=== PATIENT | male | born 1965 | race Caucasian/White ===

== ENCOUNTER 2020-08-05 13:38 | Inpatient (IN) ==
[2020-08-05] MEDS ORDERED: hydrALAZINE HCL 20 MG/ML VIAL IV STA (15:26)
[2020-08-05 16:08] LABS: Basophils # (auto) 0.01 K/uL (0-0.2); Basophils % (auto) 0.1 %; Eosinophils # (auto) 0.18 K/uL (0-0.5); Eosinophils % (auto) 2.4 %; Hematocrit (blood only) 41.9 % (42-52); Hemoglobin 15.2 g/dL (14.0-18.0); Immature Granulocytes # (auto) 0.02 K/uL (0.00-0.02); Immature Granulocytes % (auto) 0.3 %; Lymphocytes # (auto) 2.32 K/uL (1.2-3.4); Lymphocytes % (auto) 30.4 %; Mean Corpuscular Hemoglobin 34.1 pg (25-34); Mean Corpuscular Hgb Conc 36.3 g/dL (32-36); Mean Corpuscular Volume 93.9 fL (80-100); Mean Platelet Volume 8.9 fL (7.4-10.4); Monocytes # (auto) 0.82 K/uL (0.11-0.59); Monocytes % (auto) 10.7 %; Neutrophils # (auto) 4.28 K/uL (1.4-6.5); Neutrophils % (auto) 56.1 %; Platelet Count 177 K/uL (130-400); RDW Coefficient of Variation 12.4 % (11.5-14.5); RDW Standard Deviation 41.8 fL (36.4-46.3); Red Blood Count 4.46 M/uL (4.7-6.1); White Blood Count 7.63 K/uL (4.8-10.8)
[2020-08-05 16:26] LABS: Alanine Aminotransferase 54 U/L (12-78); Albumin Level 3.9 gm/dl (3.4-5.0); Aspartate Aminotransferase 26 U/L (15-37); Blood Urea Nitrogen 19 mg/dl (7-18); Calcium 8.7 mg/dl (8.5-10.1); Carbon Dioxide 28 mmol/L (21-32); Chloride 108 mmol/L (98-107); Est GFR (African American) 108.2; Est GFR (Non-African American) 93.4; Glucose 94 mg/dl (70-99); Magnesium 2.4 mg/dl (1.8-2.4); Prothrombin Time 10.8 Seconds (9.0-12.0); Sodium 139 mmol/L (136-145)
[2020-08-05 16:31] LABS: Albumin Globulin Ratio 1.2 (0.9-2); Alkaline Phosphatase 45 U/L (45-117); Globulin 3.3 gm/dl (2.5-4.0); Phosphorus 3.3 mg/dl (2.5-4.9); Total Protein 7.2 gm/dl (6.4-8.2); Troponin I < 0.015 ng/ml (0-0.045)
[2020-08-05 16:36] LABS: Appearance Urine Clear (Clear); Bilirubin Urine Negative (Negative); Blood Urine Negative (Negative); Color Urine Yellow; Glucose Urine UA Negative (Negative); Ketones Urine Negative (Negative); Leukocyte Esterase Urine Negative (Negative); Nitrite Urine Negative (Negative); Protein Urine Negative (Negative); Specific Gravity Urine 1.016 (1.000-1.030); Urobilinogen Urine Negative (Negative); pH Urine 6.5 (4.5-7.5)
--- NOTE | 2020-08-05 16:39 | Emergency Department Note ---
History of Present Illness General Chief complaint: Hypertension Stated complaint: HIGH BLOOD PRESSURE, HEADACHE, NUMBNESS FACE Time Seen by Provider: 08/05/20 15:12 History of Present Illness This patient is a 55-year-old male who presents emergency department ambulatory for evaluation of hypertension that has gotten worse over the last several days. The patient has a history of hypertension. His medications have not changed. He is currently on lisinopril and carvedilol which he has been taking as prescr ibed. He denies any chest pain or shortness of breath. He has noted intermittent, throbbing headaches. He has not taken anything for pain. He does note some numbness and tingling over the left side of his cheek that started a few days ago. The patient contacted his primary care physician who directed him here for further evaluation. Home Medications Medication Instructions Recorded Confirmed Type carvedilol [Coreg] 12.5 mg PO AMHS 08/31/18 08/05/20 History cholecalciferol (vitamin D3) 1,000 unit PO HS 08/31/18 08/05/20 History [Vitamin D3] multivitamin 1 tab PO QAM 08/31/18 08/05/20 History ascorbic acid (vitamin C) [Vitamin 500 mg PO HS 08/05/20 08/05/20 History C] lisinopril 30 mg PO HS 08/05/20 08/05/20 History omega-3 fatty acids [Fish Oil] 1,000 mg PO BID 08/05/20 08/05/20 History thiamine HCl (vitamin B1) [Vitamin 100 mg PO QAM 08/05/20 08/05/20 History B-1] Allergies Allergy/AdvReac Type Severity Reaction Status Date / Time No Known Allergies Allergy Verified 08/05/20 19:35 Past Med/Surg History Medical History Hypertension Social History Smoking Status: Never smoker Hx Substance Use: No Communication Ability: Effective Beliefs That Will Affect Care: None Current Living Situation: Family Other Information That Helps Us Care for You: No Feels Safe at Home: Yes Safety Concerns: Feels Safe At This Time Assistive Devices: None Review of Systems A total of 10 systems reviewed and were otherwise negative Physical Exam Vital Signs Vital Signs - 24 hr 08/05/20 15:53 08/05/20 16:32 08/05/20 17:34 Pulse Rate Pulse Rate [Finger] 62 65 66 Pulse Rate from SpO2 Sensor Pulse Rhythm [Finger] Regular Pulse Strength [Finger] Normal Respiratory Rate 16 16 22 Respiratory Effort / Characteristics Non-Labored Non-Labored Non-Labored Respiratory Depth Normal Normal Normal Respiratory Pattern Regular Blood Pressure Blood Pressure [Left Arm] 164/115 H 162/108 H 183/117 H Blood Pressure Mean Blood Pressure Mean [Left Arm] 131 126 139 Blood Pressure Position [Left Arm] Lying Pulse Oximetry 97 98 96 Oxygen Delivery Method Room Air 08/05/20 18:22 08/05/20 18:50 08/05/20 19:00 Pulse Rate 62 59 L Pulse Rate [Finger] 66 Pulse Rate from SpO2 Sensor 62 61 Pulse Rhythm [Finger] Pulse Strength [Finger] Respiratory Rate 16 17 23 Respiratory Effort / Characteristics Respiratory Depth Respiratory Pattern Blood Pressure 186/116 H 172/118 H Blood Pressure [Left Arm] 196/132 H Blood Pressure Mean 133 131 Blood Pressure Mean [Left Arm] 153 Blood Pressure Position [Left Arm] Pulse Oximetry 97 98 97 Oxygen Delivery Method 08/05/20 19:30 08/05/20 20:00 Pulse Rate 64 68 Pulse Rate [Finger] Pulse Rate from SpO2 Sensor 64 68 Pulse Rhythm [Finger] Pulse Strength [Finger] Respiratory Rate 12 20 Respiratory Effort / Characteristics Respiratory Depth Respiratory Pattern Blood Pressure 164/123 H 175/144 H Blood Pressure [Left Arm] Blood Pressure Mean 135 153 Blood Pressure Mean [Left Arm] Blood Pressure Position [Left Arm] Pulse Oximetry 98 Oxygen Delivery Method Constitutional WD/WN, vitals as above Eyes EOM intact bilaterally ENMT external ear and nose normal, oropharynx normal Neck trachea midline Respiratory normal respiratory effort, lungs clear to auscultation Cardiovascular RRR, no murmur, no edema Gastrointestinal (Abdomen) normal bowel sounds, soft, nontender, no hepatosplenomegaly Musculoskeletal no cyanosis or clubbing, extremities motor strength 5/5 Skin no rashes, warm and dry Neurologic Alert and oriented x3. No focal motor deficits. Cranial nerves grossly intact. Normal [id number]. Negative Romberg. Normal heel-to-toe walking. Psychiatric Acting appropriately Course Course Patient was seen and examined Vital signs including blood pressure were reviewed medications list was verified with patient Labs were obtained, and a saline lock was established An order was placed for continuous cardiac monitoring. The monitor shows a rate of 68 with normal sinus rhythm. Imaging was performed and reviewed. The patient was reassessed and resting comfortably. We discussed his results and disposition. He was comfortable with possible inpatient management. The case was also discussed with my supervising physician who is in agreement with my plan. The case was discussed with the [facility] service. They kindly agreed to evaluate the patient for possible inpatient management. [facility]ations [facility] Ascorbic Acid (Ascorbic Acid 500 Mg Tab) [address] [facility] Stop: 09/04/20 23:04 Last Admin: 08/05/20 23:49 Dose: 500 mg Documented by: [id number] Carvedilol (Carvedilol 12.5 Mg Tab) 12.5 mg PO [facility] Stop: 09/04/20 23:04 Last Admin: 08/06/20 09:13 Dose: 12.5 mg Documented by: [id number] Admin: 08/05/20 23:52 Dose: Not Given Documented by: [id number] Lisinopril (Lisinopril 10 Mg Tab) [address] [facility] Stop: 09/04/20 23:04 Last Admin: 08/05/20 23:52 Dose: Not Given Documented by: [id number] Multivitamins (Multivitamin Tab) 1 tab PO [facility] Stop: 09/05/20 08:59 Last Admin: 08/06/20 09:13 Dose: 1 tab Documented by: [id number] Thiamine HCl (Thiamine Hcl 100 Mg Tab) 100 mg PO [facility] Stop: 09/05/20 08:59 Last Admin: 08/06/20 09:14 Dose: 100 mg Documented by: [id number] Discontinued Medications Carvedilol (Carvedilol 12.5 Mg Tab) 12.5 mg PO NOW STA Stop: 08/05/20 20:48 Last Admin: 08/05/20 21:01 Dose: 12.5 mg Documented by: [id number] Gadobutrol (Gadobutrol 65ml Vial) 11.5 ml IV ONCE ONE Stop: 08/06/20 02:04 Last Admin: 08/06/20 01:52 Dose: 11.5 ml Documented by: [id number] Hydralazine HCl (Hydralazine Hcl 20 Mg/Ml Vial) 10 mg IV NOW STA Stop: 08/05/20 15:27 Last Admin: 08/05/20 16:17 Dose: 10 mg Documented by: [id number] Sodium Chloride (Nss 1000ml) 1,000 mls @ 999 mls/hr IV .Q1H1M ONE Stop: 08/05/20 19:23 Last Infusion: 08/05/20 20:11 Dose: 0 mls/hr Documented by: [id number] Admin: 08/05/20 18:53 Dose: 999 mls/hr Documented by: [id number] Nicardipine HCl 25 mg/ Sodium (Chloride) 250 mls @ 50 mls/hr IV .Q5H JAZZMINE; Protocol Stop: 09/04/20 20:29 Last Titration: 08/06/20 00:04 Dose: 0 mg/hr, 0 mls/hr Documented by: [id number] Titration: 08/05/20 23:52 Dose: 0 mg/hr, 0 mls/hr Documented by: [id number] Admin: 08/05/20 21:01 Dose: 5 mg/hr, 50 mls/hr Documented by: [id number] Cosigned by: [id number] Ioversol (Optiray 320 125ml) 120 ml IV ONCE ONE Stop: 08/05/20 17:24 Last Admin: 08/05/20 17:23 Dose: 120 ml Documented by: [id number] Lisinopril (Lisinopril 10 Mg Tab) 30 mg PO NOW STA Stop: 08/05/20 20:48 Last Admin: 08/05/20 21:29 Dose: 30 mg Documented by: [id number] Medical Decision Making Medical Records Attestation: I reviewed the patient's medical records. Home Medications Current Medication List: was personally reviewed by fl Laboratory Data Attestation: I reviewed the patient's lab results. Result diagrams: 08/06/20 05:01 08/06/20 05:01 Lab Results 08/05/20 08/05/20 08/05/20 Range/Units 15:50 15:50 15:50 WBC 7.63 (4.8-10.8) K/uL RBC 4.46 L (4.7-6.1) M/uL Hgb 15.2 (14.0-18.0) g/dL Hct 41.9 L (42-52) % MCV 93.9 (80-100) fL MCH 34.1 H (25-34) pg MCHC 36.3 H (32-36) g/dL RDW Std Deviation 41.8 (36.4-46.3) fL RDW Coeff of Sussy 12.4 (11.5-14.5) % Plt Count 177 (130-400) K/uL MPV 8.9 (7.4-10.4) fL Immature Gran % (Auto) 0.3 % Neut % (Auto) 56.1 % Lymph % (Auto) 30.4 % Ellsworth % (Auto) 10.7 % Eos % (Auto) 2.4 % Baso % (Auto) 0.1 % Neut # (Auto) 4.28 (1.4-6.5) K/uL Lymph # (Auto) 2.32 (1.2-3.4) K/uL Ellsworth # (Auto) 0.82 H (0.11-0.59) K/uL Eos # (Auto) 0.18 (0-0.5) K/uL Baso # (Auto) 0.01 (0-0.2) K/uL Immature Gran # (Auto) 0.02 (0.00-0.02) K/uL PT 10.8 (9.0-12.0) Seconds INR 1.0 (0.9-1.1) Sodium 139 (136-145) mmol/L Potassium 4.0 (3.5-5.1) mmol/L Chloride 108 H (98-107) mmol/L Carbon Dioxide 28 (21-32) mmol/L Anion Gap 3.0 (3-11) BUN 19 H (7-18) mg/dl Creatinine 0.93 (0.6-1.4) mg/dl Est Cr Clr Drug Dosing 121.0 ml/min Est GFR ( Amer) 108.2 Est GFR (Non-Af Amer) 93.4 BUN/Creatinine Ratio 20.0 (10-20) Glucose 94 (70-99) mg/dl Calcium 8.7 (8.5-10.1) mg/dl Phosphorus 3.3 (2.5-4.9) mg/dl Magnesium 2.4 (1.8-2.4) mg/dl Total Bilirubin 1.0 (0.2-1) mg/dl AST 26 (15-37) U/L ALT 54 (12-78) U/L Alkaline Phosphatase 45 (45-117) U/L Troponin I < 0.015 (0-0.045) ng/ml Total Protein 7.2 (6.4-8.2) gm/dl Albumin 3.9 (3.4-5.0) gm/dl Globulin 3.3 (2.5-4.0) gm/dl Albumin/Globulin Ratio 1.2 (0.9-2) Urine Color Urine Appearance (Clear) Urine pH (4.5-7.5) Ur Specific [place] (1.000-1.030) Urine Protein (Negative) Urine Glucose (UA) (Negative) Urine Ketones (Negative) Urine Blood (Negative) Urine Nitrite (Negative) Urine Bilirubin (Negative) Urine Urobilinogen (Negative) Ur Leukocyte Esterase (Negative) Lyme Disease IgG Ab (Negative) Lyme Disease IgM Ab (Negative) 08/05/20 08/05/20 Range/Units 15:50 15:50 WBC (4.8-10.8) K/uL RBC (4.7-6.1) M/uL Hgb (14.0-18.0) g/dL Hct (42-52) % MCV (80-100) fL MCH (25-34) pg MCHC (32-36) g/dL RDW Std Deviation (36.4-46.3) fL RDW Coeff of Sussy (11.5-14.5) % Plt Count (130-400) K/uL MPV (7.4-10.4) fL Immature Gran % (Auto) % Neut % (Auto) % Lymph % (Auto) % Ellsworth % (Auto) % Eos % (Auto) % Baso % (Auto) % Neut # (Auto) (1.4-6.5) K/uL Lymph # (Auto) (1.2-3.4) K/uL Ellsworth # (Auto) (0.11-0.59) K/uL Eos # (Auto) (0-0.5) K/uL Baso # (Auto) (0-0.2) K/uL Immature Gran # (Auto) (0.00-0.02) K/uL PT (9.0-12.0) Seconds INR (0.9-1.1) Sodium (136-145) mmol/L Potassium (3.5-5.1) mmol/L Chloride (98-107) mmol/L Carbon Dioxide (21-32) mmol/L Anion Gap (3-11) BUN (7-18) mg/dl Creatinine (0.6-1.4) mg/dl Est Cr Clr Drug Dosing ml/min Est GFR ( Amer) Est GFR (Non-Af Amer) BUN/Creatinine Ratio (10-20) Glucose (70-99) mg/dl Calcium (8.5-10.1) mg/dl Phosphorus (2.5-4.9) mg/dl Magnesium (1.8-2.4) mg/dl Total Bilirubin (0.2-1) mg/dl AST (15-37) U/L ALT (12-78) U/L Alkaline Phosphatase (45-117) U/L Troponin I (0-0.045) ng/ml Total Protein (6.4-8.2) gm/dl Albumin (3.4-5.0) gm/dl Globulin (2.5-4.0) gm/dl Albumin/Globulin Ratio (0.9-2) Urine Color Yellow Urine Appearance Clear (Clear) Urine pH 6.5 (4.5-7.5) Ur Specific [place] 1.016 (1.000-1.030) Urine Protein Negative (Negative) Urine Glucose (UA) Negative (Negative) Urine Ketones Negative (Negative) Urine Blood Negative (Negative) Urine Nitrite Negative (Negative) Urine Bilirubin Negative (Negative) Urine Urobilinogen Negative (Negative) Ur Leukocyte Esterase Negative (Negative) Lyme Disease IgG Ab Negative (Negative) Lyme Disease IgM Ab Negative (Negative) Imaging Data Attestation: I personally reviewed and interpreted this imaging study as follows: Radiologist's Impression: Chest x-ray No acute cardiopulmonary findings. CTA head and neck Unremarkable CTA of the head and neck. CT head without contrast No acute intracranial findings. ECG Data Attestation: I personally reviewed and interpreted this ECG as follows: Indication: + other Rate (beats per minute): 65 Rhythm: + normal sinus Additional Comments: No acute ischemic changes noted. No ectopy. Repeat EKG was performed and no changes were noted. No change when compared to prior study. Blood Pressure Blood Pressure Findings: Elevated blood pressure MDM Narrative Differential diagnosis: Hypertensive urgency, hypertensive emergency, CVA, intracranial bleed, infectious etiology such as Lyme disease was also considered This patient is a 55-year-old male who presents emergency department complaining of intermittent headaches, hypertension and tingling on the left side of his face. On exam, he was significantly hypertensive. Pulse was stable. The patient is already on hypertensive medication. A work-up was performed. Troponin is negative. EKG does not show any signs of acute ischemia. Renal function intact. No other abnormalities noted in the blood work. The patient was given hydralazine with fairly good response. Unfortunately, the patient's blood pressure did continue to go up. For this reason, I do not feel comfo rtable sending the patient home. Hospitalist was consulted, and agreed to evaluate the patient for likely inpatient management. Impression & Plan Hypertensive crisis Discharge Plan Visit Data Chief Complaint: Hypertension Stated Complaint: HIGH BLOOD PRESSURE, HEADACHE, NUMBNESS FACE ED Provider: Pa Cavanaugh ED Midlevel Provider: Trang Mackenzie Discharge Problem: Hypertensive crisis Patient Disposition: Admitted As Inpatient Condition: Good Discharge Instructions Interventions: ED Discharge Assessment Last Done: 08/05/20 22:11
--- NOTE | 2020-08-05 16:40 | XRay Report ---
XR chest 1V portable CLINICAL HISTORY: Hypertension. COMPARISON STUDY: Chest radiograph August 31, 2018. FINDINGS: Lung volumes are normal. Minimal left basilar opacity reflects atelectasis. There is no pne umothorax or pleural effusion. Cardiac size is normal. Mediastinal contours are normal. There is no e vidence for pulmonary edema. IMPRESSION: No acute cardiopulmonary findings. ACT 112: Negative or not required by law. Electronically signed by: Dimitrios Ryan M.D. 08/05/2020 4:39 PM
--- NOTE | 2020-08-05 16:51 | CT Scan Report ---
CT OF THE HEAD WITHOUT CONTRAST CLINICAL HISTORY: Headache. Hypertension. COMPARISON STUDY: No previous studies for comparison. CT DOSE: 537.48 mGy.cm TECHNIQUE: Helical axial images of the head were obtained without IV contrast. Automated exposure con trol was utilized for the study. A dose lowering technique was utilized adhering to the principles o f ALARA. FINDINGS: No acute intracranial hemorrhage, midline shift or mass effect is present. The ventricular system is unremarkable. The basal cisterns are patent. No extra-axial collections are present. There are no findings to suggest acute dural sinus thrombosis or acute territorial infarct. No significant calvarial abnormalities are present. Visualized portions of the sinuses and mastoid air cells are eliza ar. IMPRESSION: No acute intracranial findings. ACT 112: Negative or not required by law. Electronically signed by: Dimitrios Ryan M.D. 08/05/2020 4:49 PM
[2020-08-05 16:53] LABS: Lyme Ab IgG w/WB Rflx Negative (Negative); Lyme Ab IgM w/WB Rflx Negative (Negative)
--- NOTE | 2020-08-05 17:06 | Electrocardiogram Report ---
Test Reason : Blood Pressure : / mmHG Vent. Rate : 062 BPM Atrial Rate : 234 BPM P-R Int : 000 ms QRS Dur : 088 ms QT Int : 428 ms P-R-T Axes : 060 035 058 degrees QTc Int : 434 ms Poor data quality, interpretation may be adversely affected Normal sinus rhythm Poor R wave progression, consider anterior ND vs. lead placement vs. LVH Abnormal ECG When compared with ECG of 31-AUG-2018 11:57, No significant change Reconfirmed by Guille Evans ([id number]) on 08/06/2020 9:20:21 AM Referred By: REFERRED SELF Confirmed By:Guille Evans
[2020-08-05] MEDS ORDERED: OPTIRAY 320 125ml IV ONE (17:23)
--- NOTE | 2020-08-05 17:59 | CT Scan Report ---
CT angio neck with con, CT angio head w con CLINICAL HISTORY: 55 years-old Male with stroke sx. Acute strokelike symptoms COMPARISON STUDY: Head CT of same day TECHNIQUE: Following the IV administration of 120 mL of Optiray 320, CT angiogram of the head and nec k was performed from the aortic arch to the skull apex. Images are reviewed in the axial, sagittal, a nd coronal planes. 3-D MIPS images are created and assessed. IV contrast was administered without com plication. All measurements were calculated based on NASCET criteria. A dose lowering technique was utilized adhering to the principles of ALARA. CT DOSE: 641.02 mGy.cm FINDINGS: The imaged opacified pulmonary artery is unremarkable. Three-vessel morphology of the thoracic aortic arch. Patency of the innominate and imaged subclavian arteries. Common carotid arteries are widely p atent. The internal carotid arteries are widely patent. The middle and anterior cerebral arteries are widely patent. Dominant left vertebral artery. Vertebral arteries are patent. The basilar and landing scaler ior cerebral arteries are also widely patent. No aneurysm, dissection, high-grade stenosis or proxima l branch occlusion. Cerebral venous sinuses are patent. There is no abnormal intracranial enhancement . Clear lung apices. No pneumothorax. Mildly heterogeneous thyroid. Unremarkable soft tissues without a denopathy. Bones appear intact. Multilevel degenerative changes of the cervical spine. Mild polypoid mucosal thickening of the right maxillary sinus. Remote appearing fracture of the medial wall of the right orbit. Tiny left ethmoid air cell osteoma. IMPRESSION:Unremarkable CTA of the head and neck. ACT 112: Negative or not required by law. The above report was generated using voice recognition software. It may contain grammatical, syntax o r spelling errors. Electronically signed by: Alok Juárez M.D. 08/05/2020 5:58 PM
[2020-08-05] MEDS ORDERED: SODIUM CHLORIDE 0.9% 1000ML 1,000 ML IV ONE (18:23)
[2020-08-05] MEDS ORDERED: niCARdipine 25 MG in SODIUM CHLORIDE 0.9% 240 ML IV SCH (20:30)
[2020-08-05] MEDS ORDERED: carvediloL 12.5 MG TAB PO STA (20:47)
[2020-08-05] MEDS ORDERED: lisinopril 10 MG TAB PO STA (20:47)
[2020-08-05] MEDS ORDERED: STAT IV Infusion **Titration per Protocol STA (23:05)
[2020-08-05] MEDS ORDERED: ONDANSETRON INJ 2 MG/ML 2 ML VIAL IV PRN (23:05)
[2020-08-05] MEDS ORDERED: POLYETHYLENE (MIRALAX) 17 GM PACK PO PRN (23:05)
[2020-08-05] MEDS ORDERED: ACETAMINOPHEN 325 MG TAB PO PRN (23:05)
[2020-08-05] MEDS ORDERED: NITROGLYCERIN SL 0.4 MG/TAB TAB SL PRN (23:05)
[2020-08-05] MEDS ORDERED: PHARMACIST DISCHARGE MED REC CONSULT PRN (23:05)
--- NOTE | 2020-08-05 23:35 | History and Physical Report ---
DATE OF ADMISSION: 08/05/2020 CHIEF COMPLAINT: Headache and some left facial numbness and elevated blood pressure. HISTORY OF PRESENT ILLNESS: A 55-year-old male who has past medical history significant for hyperlipidemia, subclinical hypothyroidism, moderate obstructive sleep apnea, hypertension, spondylosis of lumbosacral regions, osteoarthritis of both knees, history of localized edema, obesity, who lives with his , presents with headache and elevated blood pressure. The patient states that he is having headache and on and off numbness in his left facial region for the last 2-3 days and when he checked his blood pressure it was running high in the 180s, so he got worried and came to the ER. He takes lisinopril 30 mg at bedtime and Coreg 12.5 mg p.o. b.i.d., the dose was not changed recently. His blood pressure is running somewhat high at home like systolic 140s to 150s range and 90-100 diastolic. He had left facial numbness several years ago attributed to his migraine. Once in a while, he gets the numbness, but at this time it is not as bad as before, it is just close to his left eye and left subparietal region, but it was somewhat more constant. The headache has resolved, currently he does not have any headaches. No blurred visions or double visions. No numbness in the hands or legs. Currently resting comfortably and hemodynamically stable. His blood pressure when he came in was elevated at 190/121. Denies any chest pain, no shortness of breath, no cough. He has occasional postnasal drainage. No earache, no sore throat, no difficulty swallowing. Appetite is good. No shortness of breath, no nausea, no vomiting, no abdominal pain. Had diarrhea for a couple of days one week ago that got resolved. No blood in the stools or black stools. Normal bladder movements. No hematuria. No swelling in the legs, no rash. He went for hunting a few days ago and he could climb up and down without any difficulty.He had been treated for Lyme disease couple of times in the past and he thinks he had some insect bites in his left groin region, he thinks it could be tick bite, but there is no rash now, no fever, it was about 1 week ago, and Lyme disease screen tested in the ER today is negative. COVID-19 test also negative. ALLERGIES: No known drug allergies. PAST MEDICAL HISTORY: As mentioned above. PAST SURGICAL HISTORY: Colonoscopy, multiple nasal surgeries, left lateral meniscectomy, adenoidectomy, inguinal hernia repair. MEDICATIONS: At home, the patient is on ascorbic acid 500 mg p.o. at bedtime, Coreg 12.5 mg p.o. b.i.d., vitamin D 1000 units at bedtime, lisinopril 30 mg p.o. at bedtime, multivitamin 1 tablet p.o. daily, fish oil 1 gram p.o. b.i.d., thiamine 100 mg p.o. a.m. FAMILY HISTORY: Significant for mother has diabetes, hypertension; father has hypertension. SOCIAL HISTORY: . No smoking. Alcohol on weekends. No drug use. REVIEW OF SYSTEMS: As per HPI. Rest of the review of systems negative. PHYSICAL EXAMINATION: GENERAL: The patient is obese, not in acute distress. VITAL SIGNS: Temperature 37, pulse 64, respiratory rate 12, blood pressure currently 164/123, oxygen 98% on room air. HEENT: Pupils equal, round, and reactive to light. Extraocular muscles intact. Head atraumatic. Oral mucosa moist. NECK: No JVD, no carotid bruit, no neck masses. CARDIOVASCULAR: S1, S2 heard, regular rate and rhythm, no murmur, no gallop. RESPIRATORY SYSTEM: Normal AP diameter. No accessory muscle use. No wheezing, no crackles. ABDOMEN: Soft, bowel sounds present, nontender. No distention. EXTREMITIES: No edema, no erythema. CENTRAL NERVOUS SYSTEM: Cranial nerves II-XII grossly intact, nonfocal. Power 5/5 in all extremities. Coordination and movements normal. No pronator drift. Able to raise his lower extremity and hold it for a few seconds. Sensation is intact. Somewhat numbness in the left parietal and orbital region. LABORATORY DATA: WBC 7.6, hemoglobin 15.2, hematocrit 41.9, platelets 177. PT 10.8, INR 1. Sodium 139, potassium 4, chloride 108, bicarbonate 28, BUN 19, creatinine 0.9, serum glucose 94, calcium 8.7, phosphorus 3.3, magnesium 2.4, total bilirubin 1, AST 26, ALT 54, alkaline phosphatase 45. Troponin I less than 0.015. Urinalysis negative. Lyme screen negative. COVID-19 negative. IMAGING DATA: CTA of the head unremarkable. CTA of the neck unremarkable. CT of the head, no acute intracranial findings. Chest x-ray, no acute findings. EKG: Atrial flutter at the rate of 62. Repeat EKG shows normal sinus rhythm at a rate of 65. ASSESSMENT AND PLAN: This is a 55-year-old male who presents with hypertensive urgency and also some numbness in the left facial region. 1. Hypertensive urgency. He is on lisinopril 30 mg and Coreg 12.5 mg daily at home. His blood pressure usually runs in the 140-150 range and diastolics in 95-100 range. It has been high at home today. He is getting headaches for a few days and also some numbness in the left facial region for the last 2-3 days. In the ER his diastolic was very high, so we will place him on nicardipine drip and continue his home Coreg and hydralazine and closely monitor in the tele floor. We will get an echocardiogram and consult cardiology in a.m. for further recommendations. 2. Questionable atrial flutter. We will follow the repeat EKGs. Tele monitor. Await cardiology input. 3. Facial numbness. He had left facial numbness several years ago for a small period of time. At that time, it was thought to be migraines. Currently happening in the setting of hypertensive urgency. This is not as bad as before. Initial CAT of head and CTA of the head and neck are unremarkable. We will follow with MRI scans. Stroke workup with neuro evaluation in the a.m. 4. Sleep apnea. Continue his home CPAP. 5. Obesity, needs counseling. 6. History of subclinical hypothyroidism. We will his thyroid profile. 7. Deep vein thrombosis prophylaxis, sequential compression devices for now. 8. Disposition: Closely monitor in the tele floor. Level 1 full code. Expect to discharge home and follow with family doctor. Addendum: His Blood pressure dropped after home meds lisinopril and Coreg. Stopped his nicardipine drip. Close monitor. [facility]
[2020-08-05] MEDS: ASCORBIC ACID 500 MG TAB PO SCH (23:49)
[2020-08-05] MEDS: lisinopril 10 MG TAB PO SCH (23:52)
[2020-08-05] MEDS: carvediloL 12.5 MG TAB PO SCH (23:52)
[2020-08-06] MEDS ORDERED: GADOBUTROL 65ML VIAL IV ONE (02:03)
[2020-08-06 05:21] LABS: Basophils # (auto) 0.01 K/uL (0-0.2); Basophils % (auto) 0.2 %; Eosinophils # (auto) 0.15 K/uL (0-0.5); Eosinophils % (auto) 2.3 %; Hematocrit (blood only) 39.9 % (42-52); Hemoglobin 14.2 g/dL (14.0-18.0); Immature Granulocytes # (auto) 0.03 K/uL (0.00-0.02); Immature Granulocytes % (auto) 0.5 %; Lymphocytes # (auto) 1.99 K/uL (1.2-3.4); Lymphocytes % (auto) 30.6 %; Mean Corpuscular Hemoglobin 33.7 pg (25-34); Mean Corpuscular Hgb Conc 35.6 g/dL (32-36); Mean Corpuscular Volume 94.8 fL (80-100); Monocytes # (auto) 0.67 K/uL (0.11-0.59); Monocytes % (auto) 10.3 %; Neutrophils # (auto) 3.66 K/uL (1.4-6.5); Neutrophils % (auto) 56.1 %; Platelet Count 171 K/uL (130-400); RDW Coefficient of Variation 12.6 % (11.5-14.5); RDW Standard Deviation 43.3 fL (36.4-46.3); Red Blood Count 4.21 M/uL (4.7-6.1); White Blood Count 6.51 K/uL (4.8-10.8)
[2020-08-06 05:42] LABS: BUN Creatinine Ratio 19.4 (10-20); Blood Urea Nitrogen 17 mg/dl (7-18); Calcium 8.4 mg/dl (8.5-10.1); Carbon Dioxide 27 mmol/L (21-32); Chloride 109 mmol/L (98-107); Cholesterol 142 mg/dl (0-200); Creatinine Clr Calc Pharmacy 126.3 ml/min; Est GFR (African American) 113.1; Est GFR (Non-African American) 97.6; Glucose 102 mg/dl (70-99); Magnesium 2.3 mg/dl (1.8-2.4); Potassium 4.1 mmol/L (3.5-5.1); Sodium 140 mmol/L (136-145)
[2020-08-06 05:52] LABS: Chol HDL Ratio 4; HDL Cholesterol 34 mg/dl; LDL Cholesterol Calculated 77 mg/dl; Triglycerides 153 mg/dl (0-150); Troponin I < 0.015 ng/ml (0-0.045); VLDL Cholesterol 31 mg/dl
[2020-08-06 05:57] LABS: Estimated Average Glucose 94 mg/dl; Hemoglobin A1C 4.9 % (4.5-5.6)
[2020-08-06 06:04] LABS: T4 Free Thyroxine 0.85 ng/dl (0.8-1.6)
--- NOTE | 2020-08-06 08:09 | Magnetic Resonance Report ---
MRI OF THE BRAIN WITHOUT AND WITH IV CONTRAST CLINICAL HISTORY: cva? Headaches. Facial numbness. COMPARISON STUDY: Head CT and CTA of the head August 05, 2020. TECHNIQUE: Utilizing a 1.5 Rylee magnet and dedicated coil, multiplanar, multiecho imaging of the br ain was performed pre and postcontrast administration. IV administration of 11.5 mL of Gadavist cont rast was uneventful. FINDINGS: There are no foci of restricted diffusion to suggest acute infarct. No acute intracranial h emorrhage, midline shift or mass effect is present. Brain volume is normal. Ventricular system is nor mal. Basal cisterns are patent. There is a retrocerebellar CSF signal intensity focus which is of no significance and may reflect a konrad cisterna magna or arachnoid cyst. There are choroid plexus cysts there is no intracranial mass or pathologic enhancement. No parenchymal signal abnormality is identif ied. Calvarial signal is normal. Orbits are unremarkable on this nondedicated exam. There is minimal ethmoid sinus mucosal thickening. There is no mastoid fluid. IMPRESSION: Unremarkable MRI of the brain. ACT 112: Negative or not required by law. Electronically signed by: Dimitrios Ryan M.D. 08/06/2020 8:07 AM
[2020-08-06] MEDS: lisinopril 10 MG TAB PO SCH (08:30)
[2020-08-06] MEDS: MULTIVITAMIN TAB PO SCH (09:13)
[2020-08-06] MEDS: carvediloL 12.5 MG TAB PO SCH ×2 (09:13→20:33)
[2020-08-06] MEDS: THIAMINE HCL 100 MG TAB PO SCH (09:14)
--- NOTE | 2020-08-06 09:32 | Cardiology Consultation ---
Date of Consultation August 06, 2020 Assessment & Plan (1) Hypertension: BP improved. MRI without acute abnormality. Resume home coreg and lisinopril doses. Will consider increasing lisinopril to 40 mg and adding HCTZ 12.5 mg -25 mg depending on BPs this am. No atrial flutter. Efforts in progress to amend EKG report from yesterday. No symptoms suggestive of angina. Troponin negative x 2. Will cancel further measurements. History of Present Illness Attending Physician: Brian Johnson MD History of Present Illness Mr Shaw is a 55 year old male seen in cardiology consultation per the request of Dr Stone for the evaluation of hypertensive urgency and concern of atrial flutter. Patient with longstanding h/o HTN. Has been in coreg and lisinopril. Has not missed any doses. Recently on home BP cuff noted readings of 145-150s/80s-90s. Yesterday had left facial numbness and very high BP readings, 190's/ diastolic up to 135 mm Hg. He was admitted to the ICU having presented to the ED. Nicardipine infusion was started however discontinued shortly after arrival to ICU , 12:36 am per nursing notes. BP well controlled in meantime. CTA of head and neck and MRI brain within normal limits. There was concern of atrial flutter performed on EKG in ED. Per my review this is sinus rhythm with baseline artifact. No AF or AFL on EKG or telemetry. 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 [employer] Allergies Allergy/AdvReac Type Severity Reaction Status Date / Time No Known Allergies Allergy Verified 08/05/20 19:35 Home Medications Medication Instructions Recorded Confirmed Type carvedilol [Coreg] 12.5 mg PO AMHS 08/31/18 08/05/20 History cholecalciferol (vitamin D3) 1,000 unit PO HS 08/31/18 08/05/20 History [Vitamin D3] multivitamin 1 tab PO QAM 08/31/18 08/05/20 History ascorbic acid (vitamin C) [Vitamin 500 mg PO HS 08/05/20 08/05/20 History C] lisinopril 30 mg PO HS 08/05/20 08/05/20 History omega-3 fatty acids [Fish Oil] 1,000 mg PO BID 08/05/20 08/05/20 History thiamine HCl (vitamin B1) [Vitamin 100 mg PO QAM 08/05/20 08/05/20 History B-1] Patient History Medical History Hypertension Social History Smoking Status: Never smoker Hx Substance Use: No Beliefs That Will Affect Care: None Current Living Situation: Family Other Information That Helps Us Care for You: No Feels Safe at Home: Yes Safety Concerns: Feels Safe At This Time Assistive Devices: CPAP and Glasses Review of Systems Review of Systems: All systems reviewed & are unremarkable except as noted in HPI & below Physical Exam Physical Exam: Temp Pulse Resp BP Pulse Ox 36.6 C 64 16 111/66 93 08/06/20 04:21 08/06/20 04:21 08/06/20 04:21 08/06/20 04:21 08/06/20 04:21 Constitutional: WD/WN, vitals as above Respiratory: normal respiratory effort, lungs clear to auscultation Cardiovascular: RRR, no murmur, no edema Gastrointestinal (Abdomen): normal bowel sounds, soft, nontender, no hepatosplenomegaly Neurologic: PERRL, EOMI, accommodation nl, no face palsy, no dysarthria Results & Data ([facility]) Vital Signs (Past 12 Hours) Vital Signs Temp Pulse Pulse Resp BP BP Pulse Ox 08/06/20 04:21 36.6 C 64 16 111/66 93 08/06/20 00:00 36.5 C 65 69 18 90/49 L 92 08/05/20 22:52 36.3 C L 73 20 145/87 H 96 08/05/20 21:30 81 24 155/98 H 96 08/05/20 21:26 74 20 124/97 97 Laboratory Results Cardiac Enzymes 08/05/20 08/06/20 Range/Units 15:50 05:01 AST 26 (15-37) U/L Troponin I < 0.015 < 0.015 (0-0.045) ng/ml Coagulation 08/05/20 Range/Units 15:50 PT 10.8 (9.0-12.0) Seconds Lipids 08/06/20 Range/Units 05:01 Triglycerides 153 H (0-150) mg/dl Cholesterol 142 (0-200) mg/dl HDL Cholesterol 34 mg/dl Cholesterol/HDL Ratio 4 CBC 08/05/20 08/06/20 Range/Units 15:50 05:01 WBC 7.63 6.51 (4.8-10.8) K/uL RBC 4.46 L 4.21 L (4.7-6.1) M/uL Hgb 15.2 14.2 (14.0-18.0) g/dL Hct 41.9 L 39.9 L (42-52) % Plt Count 177 171 (130-400) K/uL Neut # (Auto) 4.28 3.66 (1.4-6.5) K/uL Lymph # (Auto) 2.32 1.99 (1.2-3.4) K/uL Will # (Auto) 0.82 H 0.67 H (0.11-0.59) K/uL Eos # (Auto) 0.18 0.15 (0-0.5) K/uL Baso # (Auto) 0.01 0.01 (0-0.2) K/uL Comprehensive Metabolic Panel 08/05/20 08/06/20 Range/Units 15:50 05:01 Sodium 139 140 (136-145) mmol/L Potassium 4.0 4.1 (3.5-5.1) mmol/L Chloride 108 H 109 H (98-107) mmol/L Carbon Dioxide 28 27 (21-32) mmol/L BUN 19 H 17 (7-18) mg/dl Creatinine 0.93 0.89 (0.6-1.4) mg/dl Glucose 94 102 H (70-99) mg/dl Calcium 8.7 8.4 L (8.5-10.1) mg/dl AST 26 (15-37) U/L ALT 54 (12-78) U/L Alkaline Phosphatase 45 (45-117) U/L Total Protein 7.2 (6.4-8.2) gm/dl Albumin 3.9 (3.4-5.0) gm/dl Intake and Output 08/05/20 08/06/20 08/06/20 22:59 06:59 14:59 Intake Total 1000 / 1392.5 392.5 / 1392.5 Balance 1000 / 1392.5 392.5 / 1392.5 Intake: IV 1000 / 1142.5 142.5 / 1142.5 Nss 1000ML 1,000 ml @ 999 mls/ 1000 / 1000 hr IV .Q1H1M ONE Rx#:[id number] Cardene 25 mg In Nss 240 ml @ 5 142.5 / 142.5 MG/HR 50 mls/hr IV .Q5H JAZZMINE Rx #:[id number] Oral 250 / 250 Other: # Unmeasured Voids 1 Weight 116.1 kg 116.1 kg Weight Measurement Method Standing Scale Diagnostic Findings EKG 08/05/20 at 17:34 NSR at 65 , normal EKG EKG 08/05/20 1553: baseline artifact, NSR. NOT atrial flutter. No acute repolarization abnormalities
--- NOTE | 2020-08-06 11:26 | Hospitalist Progress Note ---
Date of Service August 06, 2020 Assessment & Plan (1) Hypertensive crisis: This is a 55-year-old male who presents with hypertensive urgency and numbness in the left facial region. 1. Hypertensive urgency. Pt is on lisinopril 30 mg and Coreg 12.5 mg daily at home. His blood pressure usually runs in the 140-150 range and diastolics in 95-100 range. It has been high at home prior to admission. He is getting headaches for a few days and also some numbness in the left facial region for the last 2-3 days. In the ER his diastolic was very high, so was started on nicardipine drip and continued his home BP meds and closely monitored in the tele floor. cardizem drip stopped. BP better controlled now. Cardiology plans to increase lisinopril to 40 mg daily, possibly adding HCTZ. Also discussed close follow up w/ PCP and monitoring of BP at home. Echocardiogram obtained -mild concentric LV hypertrophy. LV wall motion is normal. LV systolic function is normal. EF 60 to 65%. Grade 1 diastolic dysfunction, there is no significant valvular heart disease. 2. Questionable atrial flutter. Repeat EKGs. Tele. Cardiology consulted, do not believe pt was in Aflutter. 3. Facial numbness. Pt had left facial numbness several years ago for a small period of time. At that time, it was thought to be migraines. Currently happening in the setting of hypertensive urgency. This is not as bad as before. CT head and CTA of the head and neck are unremarkable. MRI negative for acute stroke. Neurology consulted for full evaluation Low suspicion for transient ischemic attack. Differential diagnosis certainly includes hypertensive urgency versus migraine aura. Given the prior history of similar symptoms, this would favor a possible aura. Agree with gradual reduction of blood pressures with goal systolic blood pressure of less than 140 and diastolic blood pressure of less than 90. In regards to symptomatic management, given the recurrence, patient may benefit from starting magnesium oxide 400 mg daily for possible aura prevention. Follow up with neurology as an outpatient in 8 weeks. 4. Sleep apnea. Continue his home CPAP. 5. Obesity, counseled pt on lifestyle modification, diet. 6. History of subclinical hypothyroidism. TSH mildly elevated. Follow up w/ PCP. DVT prophylaxis, SCDs for now. Ambulation. Disposition: tele floor Expect to discharge home and follow with family doctor. Appointment scheduled. Admission and Anticipated Discharge Date Admission Date: August 05, 2020 Subjective Pt is laying in bed in NAD. Presented with Left facial numbness, concern for poss. stroke. MRI brain negative for stroke, CT head, CTA head and neck also unremarkable. Uncontrolled HTN on admission, now BP better controlled. Left facial numbness resolved. No vision changes. No chest pain or shortness of breath. Review of Systems Review of Systems: All systems reviewed & are unremarkable except as noted in HPI & below Constitutional: no fever and no chills Respiratory: no cough and no dyspnea Cardiovascular: no chest pain, no palpitations and no edema Gastrointestinal: no abdominal pain, no nausea and no vomiting Physical Exam Physical Exam: GENERAL: obese male, sitting up in bed, not in acute distress HEENT: NC/AT, Pupils equal, round, and reactive to light. Extraocular muscles intact. Oral mucosa moist. NECK: No JVD, no carotid bruit, no neck masses. CARDIOVASCULAR: S1, S2 heard, regular rate and rhythm, no murmur. RESPIRATORY: Normal AP diameter. No accessory muscle use. No wheezing, no crackles. ABDOMEN: Soft, bowel sounds present, nontender. Obese. No distention. EXTREMITIES: No edema, no erythema. NEURO: Alert and oriented and answering questions appropriately, speech fluent no facial asymmetry. Cranial nerves II-XII grossly intact, nonfocal. Power 5/5 in all extremities. Coordination and movements normal. No pronator drift. Able to raise his lower extremity and hold it for a few seconds. Sensation is intact. SKIN: warm, dry, no rashes or lesions noted Results & Data Results & Data ([facility]) Vital Signs (Past 12 Hours) Vital Signs Temp Pulse Pulse Resp BP Pulse Ox 08/06/20 08:00 36.5 C 68 16 135/86 96 08/06/20 04:21 36.6 C 64 16 111/66 93 08/06/20 00:00 36.5 C 65 69 18 90/49 L 92 Laboratory Results 08/06/20 08/06/20 08/06/20 Range/Units 05:01 05:01 05:01 WBC 6.51 (4.8-10.8) K/uL RBC 4.21 L (4.7-6.1) M/uL Hgb 14.2 (14.0-18.0) g/dL Hct 39.9 L (42-52) % MCV 94.8 (80-100) fL MCH 33.7 (25-34) pg MCHC 35.6 (32-36) g/dL RDW Std Deviation 43.3 (36.4-46.3) fL RDW Coeff of Sussy 12.6 (11.5-14.5) % Plt Count 171 (130-400) K/uL MPV 9.0 (7.4-10.4) fL Immature Gran % (Auto) 0.5 % Neut % (Auto) 56.1 % Lymph % (Auto) 30.6 % [place] % (Auto) 10.3 % Eos % (Auto) 2.3 % Baso % (Auto) 0.2 % Neut # (Auto) 3.66 (1.4-6.5) K/uL Lymph # (Auto) 1.99 (1.2-3.4) K/uL [place] # (Auto) 0.67 H (0.11-0.59) K/uL Eos # (Auto) 0.15 (0-0.5) K/uL Baso # (Auto) 0.01 (0-0.2) K/uL Immature Gran # (Auto) 0.03 H (0.00-0.02) K/uL PT (9.0-12.0) Seconds INR (0.9-1.1) Sodium 140 (136-145) mmol/L Potassium 4.1 (3.5-5.1) mmol/L Chloride 109 H (98-107) mmol/L Carbon Dioxide 27 (21-32) mmol/L Anion Gap 4.0 (3-11) BUN 17 (7-18) mg/dl Creatinine 0.89 (0.6-1.4) mg/dl Est Cr Clr Drug Dosing 126.3 ml/min Est GFR ( Amer) 113.1 Est GFR (Non-Af Amer) 97.6 BUN/Creatinine Ratio 19.4 (10-20) Glucose 102 H (70-99) mg/dl Estimat Average Glucose 94 mg/dl Hemoglobin A1c 4.9 (4.5-5.6) % Calcium 8.4 L (8.5-10.1) mg/dl Phosphorus (2.5-4.9) mg/dl Magnesium 2.3 (1.8-2.4) mg/dl Total Bilirubin (0.2-1) mg/dl AST (15-37) U/L ALT (12-78) U/L Alkaline Phosphatase (45-117) U/L Troponin I < 0.015 (0-0.045) ng/ml Total Protein (6.4-8.2) gm/dl Albumin (3.4-5.0) gm/dl Globulin (2.5-4.0) gm/dl Albumin/Globulin Ratio (0.9-2) Triglycerides 153 H (0-150) mg/dl Cholesterol 142 (0-200) mg/dl LDL Cholesterol, Calc 77 mg/dl VLDL Cholesterol, Calc 31 mg/dl HDL Cholesterol 34 mg/dl Cholesterol/HDL Ratio 4 TSH 7.750 H (0.300-4.500) uIu/ml Free T4 0.85 (0.8-1.6) ng/dl Urine Color Urine Appearance (Clear) Urine pH (4.5-7.5) Ur Specific [place] (1.000-1.030) Urine Protein (Negative) Urine Glucose (UA) (Negative) Urine Ketones (Negative) Urine Blood (Negative) Urine Nitrite (Negative) Urine Bilirubin (Negative) Urine Urobilinogen (Negative) Ur Leukocyte Esterase (Negative) Lyme Disease IgG Ab (Negative) Lyme Disease IgM Ab (Negative) COVID-19 Eval Order SARS-CoV-2, RNA, NAAT (NEGATIVE) 08/05/20 08/05/20 08/05/20 Range/Units 20:30 20:30 15:50 WBC (4.8-10.8) K/uL RBC (4.7-6.1) M/uL Hgb (14.0-18.0) g/dL Hct (42-52) % MCV (80-100) fL MCH (25-34) pg MCHC (32-36) g/dL RDW Std Deviation (36.4-46.3) fL RDW Coeff of Sussy (11.5-14.5) % Plt Count (130-400) K/uL MPV (7.4-10.4) fL Immature Gran % (Auto) % Neut % (Auto) % Lymph % (Auto) % [place] % (Auto) % Eos % (Auto) % Baso % (Auto) % Neut # (Auto) (1.4-6.5) K/uL Lymph # (Auto) (1.2-3.4) K/uL [place] # (Auto) (0.11-0.59) K/uL Eos # (Auto) (0-0.5) K/uL Baso # (Auto) (0-0.2) K/uL Immature Gran # (Auto) (0.00-0.02) K/uL PT (9.0-12.0) Seconds INR (0.9-1.1) Sodium (136-145) mmol/L Potassium (3.5-5.1) mmol/L Chloride (98-107) mmol/L Carbon Dioxide (21-32) mmol/L Anion Gap (3-11) BUN (7-18) mg/dl Creatinine (0.6-1.4) mg/dl Est Cr Clr Drug Dosing ml/min Est GFR ( Amer) Est GFR (Non-Af Amer) BUN/Creatinine Ratio (10-20) Glucose (70-99) mg/dl Estimat Average Glucose mg/dl Hemoglobin A1c (4.5-5.6) % Calcium (8.5-10.1) mg/dl Phosphorus (2.5-4.9) mg/dl Magnesium (1.8-2.4) mg/dl Total Bilirubin (0.2-1) mg/dl AST (15-37) U/L ALT (12-78) U/L Alkaline Phosphatase (45-117) U/L Troponin I (0-0.045) ng/ml Total Protein (6.4-8.2) gm/dl Albumin (3.4-5.0) gm/dl Globulin (2.5-4.0) gm/dl Albumin/Globulin Ratio (0.9-2) Triglycerides (0-150) mg/dl Cholesterol (0-200) mg/dl LDL Cholesterol, Calc mg/dl VLDL Cholesterol, Calc mg/dl HDL Cholesterol mg/dl Cholesterol/HDL Ratio TSH (0.300-4.500) uIu/ml Free T4 (0.8-1.6) ng/dl Urine Color Yellow Urine Appearance Clear (Clear) Urine pH 6.5 (4.5-7.5) Ur Specific [place] 1.016 (1.000-1.030) Urine Protein Negative (Negative) Urine Glucose (UA) Negative (Negative) Urine Ketones Negative (Negative) Urine Blood Negative (Negative) Urine Nitrite Negative (Negative) Urine Bilirubin Negative (Negative) Urine Urobilinogen Negative (Negative) Ur Leukocyte Esterase Negative (Negative) Lyme Disease IgG Ab (Negative) Lyme Disease IgM Ab (Negative) COVID[facility]19 [facility] SARS-[facility]-2, RNA, NAAT NEGATIVE (NEGATIVE) 08/05/20 08/05/20 08/05/20 Range/Units 15:50 15:50 15:50 WBC 7.63 (4.8-10.8) K/uL RBC 4.46 L (4.7-6.1) M/uL Hgb 15.2 (14.0-18.0) g/dL Hct 41.9 L (42-52) % MCV 93.9 (80-100) fL MCH 34.1 H (25-34) pg MCHC 36.3 H (32-36) g/dL RDW Std Deviation 41.8 (36.4-46.3) fL RDW Coeff of Sussy 12.4 (11.5-14.5) % Plt Count 177 (130-400) K/uL MPV 8.9 (7.4-10.4) fL Immature Gran % (Auto) 0.3 % Neut % (Auto) 56.1 % Lymph % (Auto) 30.4 % [place] % (Auto) 10.7 % Eos % (Auto) 2.4 % Baso % (Auto) 0.1 % Neut # (Auto) 4.28 (1.4-6.5) K/uL Lymph # (Auto) 2.32 (1.2-3.4) K/uL [place] # (Auto) 0.82 H (0.11-0.59) K/uL Eos # (Auto) 0.18 (0-0.5) K/uL Baso # (Auto) 0.01 (0-0.2) K/uL Immature Gran # (Auto) 0.02 (0.00-0.02) K/uL PT 10.8 (9.0-12.0) Seconds INR 1.0 (0.9-1.1) Sodium (136-145) mmol/L Potassium (3.5-5.1) mmol/L Chloride (98-107) mmol/L Carbon Dioxide (21-32) mmol/L Anion Gap (3-11) BUN (7-18) mg/dl Creatinine (0.6-1.4) mg/dl Est Cr Clr Drug Dosing ml/min Est GFR ( Amer) Est GFR (Non-Af Amer) BUN/Creatinine Ratio (10-20) Glucose (70-99) mg/dl Estimat Average Glucose mg/dl Hemoglobin A1c (4.5-5.6) % Calcium (8.5-10.1) mg/dl Phosphorus (2.5-4.9) mg/dl Magnesium (1.8-2.4) mg/dl Total Bilirubin (0.2-1) mg/dl AST (15-37) U/L ALT (12-78) U/L Alkaline Phosphatase (45-117) U/L Troponin I (0-0.045) ng/ml Total Protein (6.4-8.2) gm/dl Albumin (3.4-5.0) gm/dl Globulin (2.5-4.0) gm/dl Albumin/Globulin Ratio (0.9-2) Triglycerides (0-150) mg/dl Cholesterol (0-200) mg/dl LDL Cholesterol, Calc mg/dl VLDL Cholesterol, Calc mg/dl HDL Cholesterol mg/dl Cholesterol/HDL Ratio TSH (0.300-4.500) uIu/ml Free T4 (0.8-1.6) ng/dl Urine Color Urine Appearance (Clear) Urine pH (4.5-7.5) Ur Specific [place] (1.000-1.030) Urine Protein (Negative) Urine Glucose (UA) (Negative) Urine Ketones (Negative) Urine Blood (Negative) Urine Nitrite (Negative) Urine Bilirubin (Negative) Urine Urobilinogen (Negative) Ur Leukocyte Esterase (Negative) Lyme Disease IgG Ab Negative (Negative) Lyme Disease IgM Ab Negative (Negative) COVID-19 Eval Order SARS-CoV-2, RNA, NAAT (NEGATIVE) 08/05/20 Range/Units 15:50 WBC (4.8-10.8) K/uL RBC (4.7-6.1) M/uL Hgb (14.0-18.0) g/dL Hct (42-52) % MCV (80-100) fL MCH (25-34) pg MCHC (32-36) g/dL RDW Std Deviation (36.4-46.3) fL RDW Coeff of Sussy (11.5-14.5) % Plt Count (130-400) K/uL MPV (7.4-10.4) fL Immature Gran % (Auto) % Neut % (Auto) % Lymph % (Auto) % [place] % (Auto) % Eos % (Auto) % Baso % (Auto) % Neut # (Auto) (1.4-6.5) K/uL Lymph # (Auto) (1.2-3.4) K/uL [place] # (Auto) (0.11-0.59) K/uL Eos # (Auto) (0-0.5) K/uL Baso # (Auto) (0-0.2) K/uL Immature Gran # (Auto) (0.00-0.02) K/uL PT (9.0-12.0) Seconds INR (0.9-1.1) Sodium 139 (136-145) mmol/L Potassium 4.0 (3.5-5.1) mmol/L Chloride 108 H (98-107) mmol/L Carbon Dioxide 28 (21-32) mmol/L Anion Gap 3.0 (3-11) BUN 19 H (7-18) mg/dl Creatinine 0.93 (0.6-1.4) mg/dl Est Cr Clr Drug Dosing 121.0 ml/min Est GFR ( Amer) 108.2 Est GFR (Non-Af Amer) 93.4 BUN/Creatinine Ratio 20.0 (10-20) Glucose 94 (70-99) mg/dl Estimat Average Glucose mg/dl Hemoglobin A1c (4.5-5.6) % Calcium 8.7 (8.5-10.1) mg/dl Phosphorus 3.3 (2.5-4.9) mg/dl Magnesium 2.4 (1.8-2.4) mg/dl Total Bilirubin 1.0 (0.2-1) mg/dl AST 26 (15-37) U/L ALT 54 (12-78) U/L Alkaline Phosphatase 45 (45-117) U/L Troponin I < 0.015 (0-0.045) ng/ml Total Protein 7.2 (6.4-8.2) gm/dl Albumin 3.9 (3.4-5.0) gm/dl Globulin 3.3 (2.5-4.0) gm/dl Albumin/Globulin Ratio 1.2 (0.9-2) Triglycerides (0-150) mg/dl Cholesterol (0-200) mg/dl LDL Cholesterol, Calc mg/dl VLDL Cholesterol, Calc mg/dl HDL Cholesterol mg/dl Cholesterol/HDL Ratio TSH (0.300-4.500) uIu/ml Free T4 (0.8-1.6) ng/dl Urine Color Urine Appearance (Clear) Urine pH (4.5-7.5) Ur Specific [place] (1.000-1.030) Urine Protein (Negative) Urine Glucose (UA) (Negative) Urine Ketones (Negative) Urine Blood (Negative) Urine Nitrite (Negative) Urine Bilirubin (Negative) Urine Urobilinogen (Negative) Ur Leukocyte Esterase (Negative) Lyme Disease IgG Ab (Negative) Lyme Disease IgM Ab (Negative) COVID-19 Eval Order SARS-CoV-2, RNA, NAAT (NEGATIVE) Medications Administered Current Inpatient Medications Acetaminophen (Acetaminophen 325 Mg Tab) 650 mg PO Q4H PRN PRN Reason: Pain or Fever Stop: 09/04/20 23:04 Ascorbic Acid (Ascorbic Acid 500 Mg Tab) 500 mg PO [facility] Stop: 09/04/20 23:04 Last Admin: 08/05/20 23:49 Dose: 500 mg Documented by: Carvedilol (Carvedilol 12.5 Mg Tab) 12.5 mg PO [facility] Stop: 09/04/20 23:04 Last Admin: 08/06/20 09:13 Dose: 12.5 mg Documented by: Lisinopril (Lisinopril 10 Mg Tab) 30 mg PO [facility] Stop: 09/04/20 23:04 Last Admin: 08/05/20 23:52 Dose: Not Given Documented by: Miscellaneous Information (Pharmacist Discharge Med Rec Consult) 1 ea N/A UD PRN PRN Reason: Consult Stop: 09/04/20 23:04 [facility]ivitamins (Multivitamin Tab) [facility] [place] [facility] Stop: 09/05/20 08:59 Last Admin: 08/06/20 09:13 Dose: 1 tab Documented by: Nitroglycerin (Nitroglycerin Sl 0.4 Mg/Tab Tab) 0.4 mg SL UD PRN PRN Reason: Chest Pain Stop: 09/04/20 23:04 Ondansetron HCl (Ondansetron Inj 2 Mg/Ml 2 Ml Vial) 4 mg IV Q6H PRN PRN Reason: Nausea Stop: 09/04/20 23:04 Polyethylene Glycol (Polyethylene (Miralax) 17 Gm Pack) 17 gm PO DAILY PRN PRN Reason: Constipation Stop: 09/04/20 23:04 Thiamine HCl (Thiamine Hcl 100 Mg Tab) 100 mg PO [facility] Stop: 09/05/20 08:59 Last Admin: 08/06/20 09:14 Dose: 100 mg Documented by: Vitamin D (Cholecalciferol 1,000 Units 25 Mcg Tab) 1,000 units PO [facility] Stop: 09/05/20 20:59
--- NOTE | 2020-08-06 11:57 | Electrocardiogram Report ---
Test Reason : Blood Pressure : / mmHG Vent. Rate : 065 BPM Atrial Rate : 065 BPM P-R Int : 162 ms QRS Dur : 092 ms QT Int : 422 ms P-R-T Axes : 050 043 053 degrees QTc Int : 438 ms Normal sinus rhythm Poor R wave progression, consider anterior MN vs. lead placement vs. LVH Abnormal ECG When compared with ECG of 05-AUG-2020 15:53, No significant change Confirmed by Guille Evans ([id number]) on 08/06/2020 11:57:05 AM Referred By: REFERRED SELF Confirmed By:Guille Evans
--- NOTE | 2020-08-06 15:33 | Consultation Report ---
DATE OF CONSULTATION: 08/06/2020 NEUROLOGY CONSULTATION NOTE CHIEF COMPLAINT: Headache, left facial numbness. HISTORY OF PRESENT ILLNESS: A 55-year-old male with a past medical history of hyperlipidemia, obstructive sleep apnea, hypertension, and obesity, admitted to the hospital yesterday for complaint of headache with elevated blood pressures. The patient noted a headache yesterday with intermittent numbness on the left side of his face for the last 2-3 days. He checked his blood pressure at home and it was running in the 180s systolic. He was worried and came to the Emergency Department. At home, he is on blood pressure medications including lisinopril and Coreg. He reports compliance with these medications with no change in the dose. While checking his blood pressures at home, he is routinely in the 140s to 150s systolic and 90s to 100 diastolic. He does have a history of prior left facial numbness several years ago, which he attributed to a migraine. The headache has resolved upon admission. He denied any blurred vision or any double vision. Blood pressures upon admission were elevated at 190s/121. He had no chest pain, shortness of breath or cough. He was treated for Lyme's disease several years ago. He was COVID tested, which was negative. Neurology was consulted upon admission. ALLERGIES: No known drug allergies. PAST MEDICAL HISTORY: Hypertension, hyperlipidemia, hypothyroidism, obstructive sleep apnea, osteoarthritis, obesity. PAST SURGICAL HISTORY: Colonoscopy, multiple nasal surgeries, left lateral meniscectomy, adenoidectomy, inguinal hernia repair. HOME MEDICATIONS: Vitamin C, Coreg 12.5 mg twice daily, vitamin D, lisinopril 30 mg at bedtime, fish oil, multivitamin, thiamine. FAMILY HISTORY: Mother has diabetes as well as hypertension. Father has hypertension. SOCIAL HISTORY: He is . He is a nonsmoker, drinks alcohol on the weekends. No drug use. REVIEW OF SYSTEMS: A 12-point review of systems was conducted and negative except for left facial numbness and headache. PHYSICAL EXAMINATION: VITAL SIGNS: Blood pressure 138/92, pulse is 66, respiratory rate 16, temperature is 36.7 degrees Celsius, oxygen saturation is 97% on room air. GENERAL: The patient appears normally developed. He is well nourished. HEENT: His head and face is normocephalic and atraumatic. Normal eyelids and normal conjunctivae. NECK: Supple. LUNGS: Normal respiratory effort. CARDIOVASCULAR: Normal cardiac pulses. ABDOMEN: Nondistended. SKIN: No skin rash. PSYCHIATRIC: Normal mood. NEUROLOGIC: He is awake, alert and oriented to person, place and time. He appears in no distress. His memory is normal. His attention is normal. Knowledge is appropriate. Comprehension is intact. Speech is clear. Pupils are symmetric and reactive to light. Extraocular muscles intact. Facial sensation intact. No facial asymmetry. Hearing is intact. Palate is symmetric. Good shoulder shrug. Tongue is midline. Gait is stable. No ataxia with [id number] testing. Intact to light touch in terms of sensation. Muscle tone is normal. Muscle exam is 5/5 in the upper and lower extremities. Reflexes show a negative Chucky sign and no ankle clonus. DIAGNOSTIC TESTING AND LABORATORY VALUES: WBC 6.51, hemoglobin 14.2, platelet count is 171. INR is 1.0. Sodium is 140, potassium is 4.1, chloride is 109, CO2 or carbon dioxide is 27, BUN is 17, creatinine 0.89, glucose is 102. Hemoglobin A1c is 4.9. Calcium is 8.4, magnesium is 2.3. Troponin is negative. Triglycerides are 153. TSH is 7.75, free T4 is 0.85. Urinalysis is negative. COVID-19 is negative. MRI of the brain with and without contrast: Unremarkable. No evidence of acute ischemic stroke. Head and neck CTA: Unremarkable CTA of the head and neck. No evidence of a large vessel occlusion or high-grade stenosis. ASSESSMENT AND PLAN: A 55-year-old male with a history of obstructive sleep apnea and hypertension, admitted with an accelerated hypertension as well as a headache associated with intermittent left facial numbness. Symptoms have currently resolved. MRI of the brain is negative for an acute ischemic stroke. Low suspicion for transient ischemic attack. Differential diagnosis certainly includes hypertensive urgency versus migraine aura. Given the prior history of similar symptoms, this would favor a possible aura. Agree with gradual reduction of blood pressures with goal systolic blood pressure of less than 140 and diastolic blood pressure of less than 90. Appreciate cardiology recommendations. In regards to symptomatic management, given the recurrence, patient may benefit from starting magnesium oxide 400 mg daily for possible aura prevention however would defer for now. Otherwise, he can follow up with neurology as an outpatient in 8 weeks. Please contact me with any additional questions or concerns. Thank you for the consultation. EVERETTE
[2020-08-06] MEDS ORDERED: hydroCHLOROthiazide 25 MG TAB PO STA (16:41)
--- NOTE | 2020-08-06 16:49 | Communication Note ---
Date of Service: August 06, 2020 BP has trended up to 152/101. Had coreg this am and lisinopril 30 mg usually taken at HS administered at 930 am this am. Transition to lisinopril 40 mg daily, 10 mg now, 40 mg in am tomorrow. Continue coreg 12.5 BID. If creatinine OK tomorrow add HCTZ 12.5 mg.
[2020-08-06] MEDS ORDERED: lisinopril 10 MG TAB PO ONE (17:00)
[2020-08-06] MEDS: MAGNESIUM OXIDE 400 MG TAB PO SCH (18:00)
[2020-08-06] MEDS: ASCORBIC ACID 500 MG TAB PO SCH (20:33)
[2020-08-06] MEDS ORDERED: CHOLECALCIFEROL 1,000 UNITS 25 MCG TAB PO SCH (21:00)
--- NOTE | 2020-08-07 08:26 | Hospitalist Progress Note ---
Date of Service August 07, 2020 Assessment & Plan (1) Hypertensive crisis: This is a 55-year-old male who presents with hypertensive urgency and numbness in the left facial region. 1. Hypertensive urgency. Pt is on lisinopril 30 mg and Coreg 12.5 mg daily at home. His blood pressure usually runs in the 140-150 range and diastolics in 95-100 range. It has been high at home prior to admission. He is getting headaches for a few days and also some numbness in the left facial region for the last 2-3 days. In the ER his diastolic blood pressure was very high, so was started on nicardipine drip and continued his home BP meds. cardizem drip stopped. BP better controlled now. Cardiology consulted, increased lisinopril to 40 mg daily, added HCTZ 25 mg daily. Also discussed close follow up w/ PCP and monitoring of BP at home. Pt may need blood work, BMP, Mag level at PCP follow up. Echocardiogram obtained -mild concentric LV hypertrophy. LV wall motion is normal. LV systolic function is normal. EF 60 to 65%. Grade 1 diastolic dysfunction, there is no significant valvular heart disease. 2. Questionable atrial flutter. Repeat EKGs. Tele. Cardiology consulted, do not believe pt was in Aflutter. 3. Facial numbness. Pt had left facial numbness several years ago for a small period of time. At that time, it was thought to be migraines. Currently happening in the setting of hypertensive urgency. This is not as bad as before. CT head and CTA of the head and neck are unremarkable. MRI negative for acute stroke. Neurology consulted for full evaluation Low suspicion for transient ischemic attack. Differential diagnosis certainly includes hypertensive urgency versus migraine aura. Given the prior history of similar symptoms, this would favor a possible aura. Agree with gradual reduction of blood pressures with goal systolic blood pressure of less than 140 and diastolic blood pressure of less than 90. In regards to symptomatic management, given the recurrence, patient may benefit from starting magnesium oxide 400 mg daily for possible aura prevention. Follow up with neurology as an outpatient in 8 weeks. 4. Sleep apnea. Continue his home CPAP. 5. Obesity, counseled pt on lifestyle modification, diet. 6. History of subclinical hypothyroidism. TSH mildly elevated. Follow up w/ PCP. DVT prophylaxis, SCDs for now. Ambulation. Disposition: tele floor, plan to DC home Expect to discharge home and follow with family doctor. Appointment scheduled. Admission and Anticipated Discharge Date Admission Date: August 05, 2020 Subjective Pt is laying in bed in NAD. Presented with Left facial numbness, which has resolved. No vision changes. No chest pain or shortness of breath. Uncontrolled HTN on admission, now BP better controlled. Seen by cardiology for BP control, medications adjusted. Review of Systems Review of Systems: All systems reviewed & are unremarkable except as noted in HPI & below Constitutional: no fever and no chills Respiratory: no cough and no dyspnea Cardiovascular: no chest pain, no palpitations and no edema Gastrointestinal: no abdominal pain, no nausea and no vomiting Neurologic: no localized weakness, no loss of sensation, no numbness and no dizziness Physical Exam Physical Exam: GENERAL: obese male, sitting up in bed, not in acute distress HEENT: NC/AT, Pupils equal, round, and reactive to light. Extraocular muscles intact. Oral mucosa moist. NECK: No JVD, no carotid bruit, no neck masses. CARDIOVASCULAR: S1, S2 heard, regular rate and rhythm, no murmur. RESPIRATORY: Normal AP diameter. No accessory muscle use. No wheezing, no crackles. ABDOMEN: Soft, bowel sounds present, nontender. Obese. No distention. EXTREMITIES: No edema, no erythema. NEURO: Alert and oriented and answering questions appropriately, speech fluent no facial asymmetry. Cranial nerves II-XII grossly intact, nonfocal. Power 5/5 in all extremities. Coordination and movements normal. Sensation is intact. SKIN: warm, dry, no rashes or lesions noted Results & Data Results & Data ([facility]) Vital Signs (Past 12 Hours) Vital Signs Temp Pulse Pulse Resp BP Pulse Ox 08/07/20 07:34 36.7 C 61 16 133/86 96 08/07/20 07:16 56 L 08/07/20 04:00 36.5 C 64 18 127/82 95 08/07/20 00:00 69 08/06/20 23:05 37.0 C 65 18 128/75 95 08/06/20 21:00 67 Laboratory Results 08/07/20 08/07/20 Range/Units 07:35 07:35 WBC 6.10 (4.8-10.8) K/uL RBC 4.25 L (4.7-6.1) M/uL Hgb 14.4 (14.0-18.0) g/dL Hct 40.4 L (42-52) % MCV 95.1 (80-100) fL MCH 33.9 (25-34) pg MCHC 35.6 (32-36) g/dL RDW Std Deviation 43.0 (36.4-46.3) fL RDW Coeff of Sussy 12.6 (11.5-14.5) % Plt Count 160 (130-400) K/uL MPV 9.3 (7.4-10.4) fL Immature Gran % (Auto) 0.2 % Neut % (Auto) 56.4 % Lymph % (Auto) 28.7 % [place] % (Auto) 12.0 % Eos % (Auto) 2.5 % Baso % (Auto) 0.2 % Neut # (Auto) 3.45 (1.4-6.5) K/uL Lymph # (Auto) 1.75 (1.2-3.4) K/uL [place] # (Auto) 0.73 H (0.11-0.59) K/uL Eos # (Auto) 0.15 (0-0.5) K/uL Baso # (Auto) 0.01 (0-0.2) K/uL Immature Gran # (Auto) 0.01 (0.00-0.02) K/uL Sodium 141 (136-145) mmol/L Potassium 4.0 (3.5-5.1) mmol/L Chloride 108 H (98-107) mmol/L Carbon Dioxide 29 (21-32) mmol/L Anion Gap 3.0 (3-11) BUN 16 (7-18) mg/dl Creatinine 0.86 (0.6-1.4) mg/dl Est Cr Clr Drug Dosing 129.3 ml/min Est GFR ( Amer) 114.7 Est GFR (Non-Af Amer) 99.0 BUN/Creatinine Ratio 18.3 (10-20) Glucose 98 (70-99) mg/dl Calcium 8.7 (8.5-10.1) mg/dl Medications Administered Current Inpatient Medications Acetaminophen (Acetaminophen 325 Mg Tab) 650 mg PO Q4H PRN PRN Reason: Pain or Fever Stop: 09/04/20 23:04 Ascorbic Acid (Ascorbic Acid 500 Mg Tab) 500 mg PO HS JAZZ[facility]INE Stop: 09/04/20 23:04 Last Admin: 08/06/20 20:33 Dose: 500 mg Documented by: Carvedilol (Carvedilol 12.5 Mg Tab) 12.5 mg PO [facility] Stop: 09/04/20 23:04 Last Admin: 08/07/20 08:59 Dose: 12.5 mg Documented by: Hydrochlorothiazide (Hydrochlorothiazide 25 Mg Tab) 25 mg PO [facility] Stop: 09/06/20 09:44 Last Admin: 08/07/20 09:49 Dose: 25 mg Documented by: Lisinopril (Lisinopril 40 Mg Tab) 40 mg PO [facility] Stop: 09/06/20 08:59 Last Admin: 08/07/20 08:59 Dose: 40 mg Documented by: Magnesium Oxide (Magnesium Oxide 400 Mg Tab) 400 mg PO [facility] Stop: 09/05/20 16:59 Last Admin: 08/07/20 08:59 Dose: 400 mg Documented by: Multivitamins (Multivitamin Tab) 1 tab PO [facility] Stop: 09/05/20 08:59 Last Admin: 08/07/20 09:00 Dose: 1 tab Documented by: Nitroglycerin (Nitroglycerin Sl 0.4 Mg/Tab Tab) 0.4 mg SL UD PRN PRN Reason: Chest Pain Stop: 09/04/20 23:04 Ondansetron HCl (Ondansetron Inj 2 Mg/Ml 2 Ml Vial) 4 mg IV Q6H PRN PRN Reason: Nausea Stop: 09/04/20 23:04 Polyethylene Glycol (Polyethylene (Miralax) 17 Gm Pack) 17 gm PO DAILY PRN PRN Reason: Constipation Stop: 09/04/20 23:04 Thiamine HCl (Thiamine Hcl 100 Mg Tab) 100 mg PO [facility] Stop: 09/05/20 08:59 Last Admin: 08/07/20 09:00 Dose: 100 mg Documented by: Vitamin D (Cholecalciferol 1,000 Units 25 Mcg Tab) 1,000 units PO [facility] Stop: 09/05/20 20:59 Last Admin: 08/06/20 20:33 Dose: 1,000 units Documented by:
[2020-08-07 08:35] LABS: Basophils # (auto) 0.01 K/uL (0-0.2); Basophils % (auto) 0.2 %; Eosinophils # (auto) 0.15 K/uL (0-0.5); Eosinophils % (auto) 2.5 %; Hematocrit (blood only) 40.4 % (42-52); Hemoglobin 14.4 g/dL (14.0-18.0); Immature Granulocytes # (auto) 0.01 K/uL (0.00-0.02); Immature Granulocytes % (auto) 0.2 %; Lymphocytes # (auto) 1.75 K/uL (1.2-3.4); Lymphocytes % (auto) 28.7 %; Mean Corpuscular Hemoglobin 33.9 pg (25-34); Mean Corpuscular Hgb Conc 35.6 g/dL (32-36); Mean Corpuscular Volume 95.1 fL (80-100); Mean Platelet Volume 9.3 fL (7.4-10.4); Monocytes # (auto) 0.73 K/uL (0.11-0.59); Neutrophils # (auto) 3.45 K/uL (1.4-6.5); Neutrophils % (auto) 56.4 %; Platelet Count 160 K/uL (130-400); RDW Coefficient of Variation 12.6 % (11.5-14.5); Red Blood Count 4.25 M/uL (4.7-6.1)
[2020-08-07 08:57] LABS: BUN Creatinine Ratio 18.3 (10-20); Calcium 8.7 mg/dl (8.5-10.1); Creatinine Clr Calc Pharmacy 129.3 ml/min; Est GFR (African American) 114.7
[2020-08-07] MEDS: MAGNESIUM OXIDE 400 MG TAB PO SCH (08:59)
[2020-08-07] MEDS: carvediloL 12.5 MG TAB PO SCH (08:59)
[2020-08-07] MEDS: MULTIVITAMIN TAB PO SCH (09:00)
[2020-08-07] MEDS: THIAMINE HCL 100 MG TAB PO SCH (09:00)
[2020-08-07] MEDS ORDERED: lisinopril 40 MG TAB PO SCH (09:00)
[2020-08-07] MEDS ORDERED: hydroCHLOROthiazide 25 MG TAB PO SCH ×2 (09:00→09:45)
[2020-08-07] MEDS ORDERED: Nursing to Pharmacy Communication SCH (10:00)
--- NOTE | 2020-08-07 10:00 | Discharge Summary ---
Date of Service August 07, 2020 Admission HPI Per Admitting Provider A 55-year-old male who has past medical history significant for hyperlipidemia, subclinical hypothyroidism, moderate obstructive sleep apnea, hypertension, spondylosis of lumbosacral regions, osteoarthritis of both knees, history of localized edema, obesity, who lives with his , presents with headache and elevated blood pressure. The patient states that he is having headache and on and off numbness in his left facial region for the last 2-3 days and when he checked his blood pressure it was running high in the 180s, so he got worried and came to the ER. He takes lisinopril 30 mg at bedtime and Coreg 12.5 mg p.o. b.i.d., the dose was not changed recently. His blood pressure is running somewhat high at home like systolic 140s to 150s range and 90-100 diastolic. He had left facial numbness several years ago attributed to his migraine. Once in a while, he gets the numbness, but at this time it is not as bad as before, it is just close to his left eye and left subparietal region, but it was somewhat more constant. The headache has resolved, currently he does not have any headaches. No blurred visions or double visions. No numbness in the hands or legs. Currently resting comfortably and hemodynamically stable. His blood pressure when he came in was elevated at 190/121. Denies any chest pain, no shortness of breath, no cough. He has occasional postnasal drainage. No earache, no sore throat, no difficulty swallowing. Appetite is good. No shortness of breath, no nausea, no vomiting, no abdominal pain. Had diarrhea for a couple of days one week ago that got resolved. No blood in the stools or black stools. Normal bladder movements. No hematuria. No swelling in the legs, no rash. He went for hunting a few days ago and he could climb up and down without any difficulty.He had been treated for Lyme disease couple of times in the past and he thinks he had some insect bites in his left groin region, he thinks it could be tick bite, but there is no rash now, no fever, it was about 1 week ago, and Lyme disease screen tested in the ER today is negative. COVID-19 test also negative. Admission Exam Per Admitting Provider GENERAL: The patient is obese, not in acute distress. VITAL SIGNS: Temperature 37, pulse 64, respiratory rate 12, blood pressure currently 164/123, oxygen 98% on room air. HEENT: Pupils equal, round, and reactive to light. Extraocular muscles intact. Head atraumatic. Oral mucosa moist. NECK: No JVD, no carotid bruit, no neck masses. CARDIOVASCULAR: S1, S2 heard, regular rate and rhythm, no murmur, no gallop. RESPIRATORY SYSTEM: Normal AP diameter. No accessory muscle use. No wheezing, no crackles. ABDOMEN: Soft, bowel sounds present, nontender. No distention. EXTREMITIES: No edema, no erythema. CENTRAL NERVOUS SYSTEM: Cranial nerves II-XII grossly intact, nonfocal. Power 5/5 in all extremities. Coordination and movements normal. No pronator drift. Able to raise his lower extremity and hold it for a few seconds. Sensation is intact. Somewhat numbness in the left parietal and orbital region. Principal Diagnosis Hypertensive urgency Left facial numbness Discharge Exam GENERAL: obese male, sitting up in bed, not in acute distress HEENT: NC/AT, Pupils equal, round, and reactive to light. Extraocular muscles intact. Oral mucosa moist. NECK: No JVD, no carotid bruit, no neck masses. CARDIOVASCULAR: S1, S2 heard, regular rate and rhythm, no murmur. RESPIRATORY: Normal AP diameter. No accessory muscle use. No wheezing, no crackles. ABDOMEN: Soft, bowel sounds present, nontender. Obese. No distention. EXTREMITIES: No edema, no erythema. NEURO: Alert and oriented and answering questions appropriately, speech fluent no facial asymmetry. Cranial nerves II-XII grossly intact, nonfocal. Power 5/5 in all extremities. Coordination and movements normal. Sensation is intact. SKIN: warm, dry, no rashes or lesions noted Discharge Data Allergies Allergy/AdvReac Type Severity Reaction Status Date / Time No Known Allergies Allergy Verified 08/05/20 19:35 Consultations 08/05/20 18:47 ED Decision to Admit Stat 08/05/20 23:05 Consult Case Management - Discharge Planning Routine Consult Case Management - Discharge Planning Routine Consult Neurology Routine 08/06/20 08:00 Consult Cardiology Routine Ordered Studies 08/05/20 15:47 CT head/brain wo con Stat IMPRESSION: No acute intracranial findings. 08/05/20 17:02 CT angio head w con Stat CT angio neck with con Stat IMPRESSION:Unremarkable CTA of the head and neck. 08/06/20 00:33 MR brain wo/w con Routine IMPRESSION: Unremarkable MRI of the brain. Hospital Course (1) Hypertensive crisis: This is a 55-year-old male who presents with hypertensive urgency and numbness in the left facial region. 1. Hypertensive urgency. Pt is on lisinopril 30 mg and Coreg 12.5 mg daily at home. His blood pressure usually runs in the 140-150 range and diastolics in 95-100 range. It has been high at home prior to admission. He is getting headaches for a few days and also some numbness in the left facial region for the last 2-3 days. In the ER his diastolic blood pressure was very high, so was started on nicardipine drip and continued his home BP meds. cardizem drip stopped. BP better controlled now. Echocardiogram obtained -mild concentric LV hypertrophy. LV wall motion is normal. LV systolic function is normal. EF 60 to 65%. Grade 1 diastolic dysfunction, there is no significant valvular heart disease. Cardiology consulted, increased lisinopril to 40 mg daily, added HCTZ 25 mg daily. Also discussed close follow up w/ PCP and monitoring of BP at home. Pt may need blood work, BMP, Mag level at PCP follow up. 2. Questionable atrial flutter. Repeat EKGs. Tele. Cardiology consulted, do not believe pt was in Aflutter. 3. Facial numbness. Pt had left facial numbness several years ago for a small period of time. At that time, it was thought to be migraines. Currently happening in the setting of hypertensive urgency. This is not as bad as before. CT head and CTA of the head and neck are unremarkable. MRI negative for acute stroke. Neurology consulted for full evaluation Low suspicion for transient ischemic attack. Differential diagnosis certainly includes hypertensive urgency versus migraine aura. Given the prior history of similar symptoms, this would favor a possible aura. Agree with gradual reduction of blood pressures with goal systolic blood pressure of less than 140 and diastolic blood pressure of less than 90. In regards to symptomatic management, given the recurrence, patient may benefit from starting magnesium oxide 400 mg daily for possible aura prevention. Follow up with neurology as an outpatient in 8 weeks. 4. Sleep apnea. Continue his home CPAP. 5. Obesity, counseled pt on lifestyle modification, diet. 6. History of subclinical hypothyroidism. TSH mildly elevated. Follow up w/ PCP. Follow with family doctor. Appointment scheduled. Follow up w/ neurology in 8 weeks. Total Time Total Time Spent Total Time Spent (In Minutes): 40 Total Time Includes: Examination of the Patient, Discharge Planning, Medication Reconciliation and Communication With Other Providers Discharge Plan Discharge Items Patient Disposition: Home - Self-Care Reason For Visit: ELEVATED BP Discharge Diagnosis: Hypertensive urgency Left facial numbness Condition on Discharge: Good Activity: Per Instructions section Non-emergency contact: Primary Care Provider Call non-emergency contact if: you have any medication questions and your symptoms worsen Follow-up/Referrals: Porfirio Akers MD [Primary Care Provider] - (Date & Time 08/11/2020 11:00 AM Provider Porfirio Akers MD [facility] ) Diet: Heart Healthy Addtl Attending Provider Instructions: Follow-up with your primary care doctor, appointment was scheduled for you for August 11. In the meantime, recommend to monitor your blood pressure at home and keep a log. Review this log with your primary care doctor at your next appointment. You may need a blood work as well to check on your kidney function and electrolytes, this will be ordered by your primary care physician. Your home blood pressure medication, lisinopril, was increased to 40 mg daily. You were also started on a new medication, called hydrochlorothiazide/HCTZ, please take 25 mg daily. Prescription was sent to your pharmacy. In addition it was recommended that you take magnesium supplement, this was also sent to your pharmacy. It was recommended that you follow-up with neurology in 8 weeks. Pending Studies at Discharge: No Stand-Alone Forms: My [facility] [employer], Smoking Cessation Medications and DC Order Prescriptions: New lisinopril [Zestril] 40 mg Tablet 40 mg PO QAM 30 Days Qty: 30 RF: 0 hydrochlorothiazide 25 mg Tablet 25 mg PO QAM 30 Days Qty: 30 RF: 0 magnesium oxide 400 mg (241.3 mg magnesium) Tablet 400 mg PO QAM 30 Days Qty: 30 RF: 0 Continued multivitamin Tablet 1 tab PO QAM RF: 0 carvedilol [Coreg] 12.5 mg Tablet 12.5 mg PO [facility] RF: 0 cholecalciferol (vitamin D3) [Vitamin D3] 1,000 unit Tablet 1,000 unit PO HS RF: 0 thiamine HCl (vitamin B1) [Vitamin B-1] 100 mg Tablet 100 mg PO QAM RF: 0 ascorbic acid (vitamin C) [Vitamin C] 500 mg Tablet 500 mg PO HS RF: 0 Fish Oil Capsule 1,000 mg PO BID RF: 0 Discontinued lisinopril 30 mg tablet 30 mg PO HS RF: 0 Discharge Orders: Discharge Order (Routine); Ordered 08/07/20 Ordered By: Brian Johnson Admission Data Admit Date/Time: 08/05/20 20:24 Attending Provider: Brian Johnson Admit Provider: Yimi Stone Primary Care Provider: Porfirio Akers Other Providers: Saravanan Bond ; Iva Layne ; Brie Lyon ; William Nielson ; Brie Muñoz ; Rasta Adams ; Kevin Willingham ; Clifford Geronimo ; Jono Rodríguez ; Mina Massey ; Jayesh Jennings ; Donald Campbell ; Koki Jay ; Brie Moore ; Davin Combs
== END 2020-08-07 11:23 | disposition home or self-care (01) | DRG 305 ==
LOC: ED 13:38 → 1E 20:24 → SUATTDRO 20:24 → 1E 22:11 → 2W 08-06 18:40